=== PATIENT | female | born 2000 | race Caucasian/White ===

== ENCOUNTER 2022-01-16 14:56 | Emergency (ER) | payer BC, SELFPAY ==
[2022-01-16 14:57] VITALS: BP 136/84; PULSE 114; RESP 16; TEMP 36.1; O2SAT 99; BMI 27.4
[2022-01-16 15:08] VITALS: BP 130/96; PULSE 107; RESP 16; O2SAT 100
--- NOTE | 2022-01-16 15:14 | CT_ITS ---
STUDY: CT BRAIN WITHOUT CONTRAST REASON FOR EXAM: Female, 21 years old. headache RADIATION DOSAGE (If Supplied By Facility): CTDIvol = ( 44.99 ) mGy, DLP = ( 745.49 ) mGycm TECHNIQUE: Transaxial CT imaging of the brain was performed without administration of intravenous contrast material. Individualized dose optimization techniques were used for this CT. COMPARISON: No relevant priors. FINDINGS: There is no intra-/extra-axial fluid collection, mass effect, or midline shift. The gar/white matter junction is preserved. The basal cisterns are patent. Visualized paranasal sinuses and mastoid air cells are clear. The calvarium is intact. CT/Brain/Head without Contrast IMPRESSION: No acute intracranial finding. Electronically Signed: Constantino Parish MD at 15:53 EDT ,
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
[2022-01-16] MEDS: Ondansetron ODT 4 MG Tablet PO (15:44)
[2022-01-16] MEDS: Acetaminophen 500 MG Tablet 1000 MG PO (15:45)
[2022-01-16 16:22] VITALS: BP 132/87; PULSE 73; RESP 15; O2SAT 98
== END 2022-01-16 16:23 | disposition home or self-care (01) ==
PROVIDERS: Emergency Provider Student in an Organized Health Care Education/Training Program; Visit Provider Student in an Organized Health Care Education/Training Program
DX: S06.0X0A Concussion without loss of consciousness, initial encounter (principal); V47.6XXA Car passenger injured in collision with fixed or stationary object in traffic accident, initial encounter; Y92.810 Car as the place of occurrence of the external cause
CPT/HCPCS: 70450; 99283